=== PATIENT | female | born 1980 | race Caucasian/White ===

== ENCOUNTER 2025-02-18 00:04 | Emergency (ER) | payer MEDICAID ==
[~2025-02-18] VITALS: Ht 165.1 cm; Wt 109.0 kg
[2025-02-18 00:11] VITALS: O2SAT 99
[2025-02-18 00:35] VITALS: TEMP 36.9; O2SAT 98
[2025-02-18] MEDS ORDERED: OFLO5DRO4 RIGHT EAR (00:37)
[2025-02-18] MEDS ORDERED: IBUP-1455 MT (00:37)
[2025-02-18 01:15] VITALS: BP 126/65; PULSE 70; RESP 18
[2025-02-18] MEDS: KETOROLAC 30MG/ML VIAL IM ONE (01:15)
== END 2025-02-18 01:43 | disposition home or self-care (01) ==
LOC: ER 00:04
DX: H60.91 Unspecified otitis externa, right ear (principal); H92.01 Otalgia, right ear
CPT/HCPCS: 99283; 81025; 96372; J1885